=== PATIENT | male | born 1980 | race Caucasian/White ===

== ENCOUNTER 2016-12-22 11:50 | Emergency (ER) | payer SELFPAY ==
[~2016-12-22] VITALS: Ht 188 cm; Wt 110.0 kg
[~2016-12-22 11:50] MED LIST: GUAISYP7 PO; LORA1TAB12 PO; PROT40TA PO; ZITHTAB PO
[2016-12-22 12:02] VITALS: BP 132/80; PULSE 81; RESP 16; TEMP 97.9; O2SAT 91
--- NOTE | 2016-12-22 12:14 | PD ---
HPI Chief Complaint: Pain: Acute or Chronic Time Seen by Provider: 12:45 Travel History International Travel<30 days: No Contact w/Intl Traveler<30days: No Traveled to known affect area: No History of Present Illness HPI 36 YO male with PMH of anxiety, GERD, AFib s/p ablation presents to the ED for evaluation of 3 day history of neck pain. Rated 7/10. Worsened by movement. Patient can recall no acute injury. Also complains of ~3 month history of intermittent dizziness. Sometimes occurs after rising from a sitting position. Endorses chronic, intermittent right frontal headaches- no exacerbation with recent symptoms. Endorses chronic left sided chest wall pain and palpitations 2/ 2 anxiety. Endorses mild SOB over the last few days. Denies abdominal pain. Endorses decreased appetite, mild intermittent nausea and a few episodes of postprandial vomiting recently. Endorses well formed BM q 1-2 days. Denies hematochezia, melena, BRBPR. Endorses chronic low back pain with radiation into the right leg. No acute exacerbations with recent symptoms. Also complains of right foot pain. States that the pain arises in the bottom of the foot and shoots "through the right side" of the body. Denies fevers, chills, vision changes, numbness, tingling, weakness, giving way of the extremities. Followed by Dr. Luna. [facility] Past Medical History Hx Anticoagulant Therapy: No Atrial Fibrillation: Yes Blood Disorders: No Anxiety: Yes Cancer: No Cardiovascular Problems: Yes (ABLATION FOR AFIB) Diminished Hearing: No Endocrine: No Gastrointestinal Disorders: Yes (GERD) GERD: Yes Genitourinary: No Headaches: Yes Immune Disorder: No Implanted Vascular Access Dvce: No Musculoskeletal: No Neurologic: No Reproductive: No Respiratory: No Immunizations Current: No Past Surgical History Other Surgery: No Social History Alcohol Use: No Tobacco Use: No (QUIT 3 YEARs AGO ) Substance Use: No Allergies-Medications (Allergen,Severity, Reaction): Coded Allergies: No Known Allergies (Unverified , 12/22/16) Reported Meds & Prescriptions Reported Meds & Active Scripts Active Zofran Odt (Ondansetron Odt) 4 Mg Tab 4 Mg SL Q12HR PRN Ibuprofen 800 Mg Tab 800 Mg PO Q8H Augmentin (Amoxicillin-Clavulanate) 875-125 Mg Tab 1 Tab PO BID 7 Days Reported Lorazepam 1 Mg Tab 1 Mg PO DAILY Protonix (Pantoprazole Sodium) 40 Mg Tab 40 Mg PO DAILY Review of Systems Except as stated in HPI: all other systems reviewed are Neg Physical Exam Narrative GENERAL: Well-nourished, well-developed white male in no acute distress. SKIN: Warm and dry. Patient has several, scattered, small lipomas. HEAD: Normocephalic. Atraumatic. No tenderness to palpation of the facial sinuses EYES: No scleral icterus. No injection or drainage. PERRLA. EOMI. ENT: Pearly toro tympanic membrane is bilaterally. Nasal mucosa is moist. Oropharynx without erythema, edema or exudate. NECK: Supple, trachea midline. No JVD or lymphadenopathy. No midline tenderness to palpation. ++ TPP of the paraspinal musculature. Patient retains full, active, painless range of motion of the neck. Brudzinski's negative. CARDIOVASCULAR: Regular rate and rhythm without murmurs, gallops, or rubs. 2+ DP and radial pulses bilaterally. RESPIRATORY: Breath sounds clear and equal bilaterally. No accessory muscle use. GASTROINTESTINAL: Abdomen soft, non-tender, nondistended. + Bowel sounds. MUSCULOSKELETAL: No cyanosis, or edema. ++ TPP midline of the proximal 1/3 of the right plantar surface. No tenderness to palpation or limitations to range of motion of the joints of the upper and lower extremities bilaterally. NEUROLOGICAL: Awake and alert. Cranial nerves II through XII intact. Motor and sensory grossly within normal limits. 5/5 muscle strength in all muscle groups. Normal speech. No pronator drift. No ataxia. BACK: No obvious deformity. No CVA tenderness. No midline tenderness. ++TTP paraspinal musculature of the lumbar area. Data Data Last Documented VS Vital Signs Date Time Temp Pulse Resp B/P Pulse Ox O2 Delivery O2 Flow Rate FiO2 12/22/16 15:17 67 16 121/79 98 Room Air 12/22/16 12:02 97.9 Orders Complete Blood Count With Diff (12/22/16 12:44) Comprehensive Metabolic Panel (12/22/16 12:44) Urinalysis - C+S If Indicated (12/22/16 12:44) Iv Access Insert/Monitor (12/22/16 12:44) Sodium Chlor 0.9% 1000 Ml Inj (Ns 1000 M (12/22/16 12:44) Sodium Chloride 0.9% Flush (Ns Flush) (12/22/16 12:45) Ketorolac Inj (Toradol Inj) (12/22/16 12:45) Foot, Limited (2vws) (12/22/16 12:44) Ct Brain W/O Iv Contrast(Rout) (12/22/16 12:44) Baclofen (Lioresal) (12/22/16 12:45) Orthostatic Vital Signs (12/22/16 13:25) Electrocardiogram (12/22/16 13:45) Ckmb (Isoenzyme) Profile (12/22/16 13:45) Troponin I (12/22/16 13:45) Us Abdomen Gallbladder (12/22/16 13:45) CKMB (12/22/16 13:00) CKMB% (12/22/16 13:00) Labs Laboratory Tests Test 12/22/16 12/22/16 13:00 13:04 White Blood Count 12.9 TH/MM3 Red Blood Count 5.14 MIL/MM3 Hemoglobin 15.6 GM/DL Hematocrit 44.1 % Mean Corpuscular Volume 85.8 FL Mean Corpuscular Hemoglobin 30.3 PG Mean Corpuscular Hemoglobin 35.3 % Concent Red Cell Distribution Width 12.8 % Platelet Count 200 TH/MM3 Mean Platelet Volume 9.5 FL Neutrophils (%) (Auto) 65.0 % Lymphocytes (%) (Auto) 25.9 % Monocytes (%) (Auto) 7.5 % Eosinophils (%) (Auto) 1.0 % Basophils (%) (Auto) 0.6 % Neutrophils # (Auto) 8.4 TH/MM3 Lymphocytes # (Auto) 3.3 TH/MM3 Monocytes # (Auto) 1.0 TH/MM3 Eosinophils # (Auto) 0.1 TH/MM3 Basophils # (Auto) 0.1 TH/MM3 CBC Comment DIFF FINAL Differential Comment Sodium Level 139 MEQ/L Potassium Level 4.0 MEQ/L Chloride Level 104 MEQ/L Carbon Dioxide Level 25.6 MEQ/L Anion Gap 9 MEQ/L Blood Urea Nitrogen 14 MG/DL Creatinine 0.92 MG/DL Estimat Glomerular Filtration 92 ML/MIN Rate Random Glucose 88 MG/DL Calcium Level 8.9 MG/DL Total Bilirubin 1.5 MG/DL Aspartate Amino Transf 52 U/L (AST/SGOT) Alanine Aminotransferase 114 U/L (ALT/SGPT) Alkaline Phosphatase 67 U/L Total Creatine Kinase 123 U/L Creatine Kinase MB 0.7 NG/ML Troponin I LESS THAN 0.02 NG/ML Total Protein 7.4 GM/DL Albumin 4.2 GM/DL Urine Color YELLOW Urine Turbidity CLEAR Urine pH 5.5 Urine Specific [place] 1.024 Urine Protein TRACE mg/dL Urine Glucose (UA) NEG mg/dL Urine Ketones NEG mg/dL Urine Occult Blood NEG Urine Nitrite NEG Urine Bilirubin NEG Urine Urobilinogen LESS THAN 2.0 MG/DL Urine Leukocyte Esterase NEG Urine RBC LESS THAN 1 /hpf Urine WBC LESS THAN 1 /hpf Urine Mucus FEW /lpf Microscopic Urinalysis Comment CULT NOT INDICATED MDM Medical Decision Making Medical Screen Exam Complete: Yes Emergency Medical Condition: Yes Differential Diagnosis musculoskeletal pain versus anxiety versus heel spur versus orthostatic hypotension versus less likely ICH versus less likely ACS versus other Narrative Course 36-year-old male with PMH of anxiety, GERD, A. fib S/PE abrasion presents to the ED with multiple complaints including neck pain 3 days, low appetite and nausea, nonspecific shortness of breath, right-sided foot pain. Patient is afebrile, heart rate 64, BP 137/88, respiratory rate 16, 98% on room air on presentation. Physical exam reveals a nontoxic-appearing white male in no acute distress. No focal neuro deficits noted. ++TTP of the paraspinal musculature in the cervical and lumbar spinal area. No meningeal signs. ++TTP plantar aspect of the calcaneus on the right foot. Patient was administered 1 L normal saline, 30 mg Toradol IV and 10 mg baclofen PO. CBC: WBC 12.9. Hgb 15.6 CMP: Bilirubin 1.5. AST 52, ALT 114 UA: No culture indicated. EKG: Rate 58, sinus rhythm. AR interval 147, QRS 97, QTC 403 ms. Normal axis. No ST elevations or depressions. Reviewed by Dr. Cottrell. Cardiac enzymes: negative x 1 Orthostatic vital signs: Negative CT head: No intracranial abnormality. Mild asthma. Sinus disease. XR right foot: No acute abnormality, mild osteoarthritis, heel spur and small distal Achilles enthesophyte. RUQ US: Normal gallbladder. No evidence of biliary obstruction. I discussed the results of the work up with the patient at length. The majority symptoms seem chronic and the patient has been extensively worked up. He states that he "spent a few weeks" at the [facility] being evaluated in the past. Ultimately, I recommended treating the chronic sinusitis and musculoskeletal pain with close follow-up by the primary care provider for the elevated LFTs. Patient is agreeable to this care plan. He is prescribed 875 Augmentin twice a day, 800 mg ibuprofen 3 times a day and provided with a few doses of Zofran. After take the medication as prescribed, follow up with the half backer regarding his foot pain, primary care for elevated LFTs. He indicated understanding of instructions and is agreeable to the care plan. The patient is stable and discharged home. Diagnosis Primary Impression: Cervical muscle strain Qualified Code: S16.1XXA - Cervical muscle strain, initial encounter Additional Impressions: Heel spur Qualified Code: M77.31 - Heel spur, right Elevated LFTs Sinusitis Qualified Code: J01.20 - Subacute ethmoidal sinusitis Referrals: Ear / Nose / Throat Specialist Transmission Builder Primary Care Physician Psychiatrist Patient Instructions: General Instructions, Heel Spur (ED), Musculoskeletal Pain (ED), Sinusitis (ED) Additional Instructions: Rest, hydrate. Return to normal, gentle activity as tolerated. Take all antibiotics as prescribed, even if symptoms resolve. 800 mg ibuprofen 3 times daily for the next 5 days. Flexeril up to 3 times a day as needed for muscle spasm. Do not drive while taking Flexeril. Follow-up with the half backer regarding your heel spur. Follow-up with the primary care provider for evaluation of elevated LFTs today. Return to the ED for any urgent or emergent medical condition. Med/Other Pt SpecificInfo: Prescription(s) given Scripts Ondansetron Odt (Zofran Odt)4 Mg Tab4 Mg SL Q12HR PRN (Nausea/Vomiting) #6 TAB Ref 0 Prov:Dano Cottrell MD 12/22/16 Ibuprofen 800 Mg [id number] Mg PO Q8H #15 TAB Ref 0 Prov:Dano Cottrell MD 12/22/16 Amoxicillin-Clavulanate (Augmentin)875-125 Mg Tab1 Tab PO BID 7 Days Ref 0 Prov:Dano Cottrell MD 12/22/16 Disposition: 01 DISCHARGE HOME Condition: Stable Thais Blackwell Dec 22, 2016 12:13
[2016-12-22 12:16] VITALS: BP 138/72; PULSE 82; RESP 16; O2SAT 97
[2016-12-22] MEDS ORDERED: SODIUM CHLOR 0.9% 1000 ML INJ 1,000 ML IV SCH (12:44)
[2016-12-22] MEDS ORDERED: KETOROLAC TROMETHAMINE 30 MG/ML (IVP) VIAL IV PUSH ONE (12:45)
[2016-12-22] MEDS ORDERED: BACLOFEN 10 MG TAB PO ONE (12:45)
[2016-12-22] MEDS ORDERED: SODIUM CHLORIDE 0.9% FLUSH 10 ML FLUSH IV FLUSH PRN (12:45)
[2016-12-22] MEDS ORDERED: LORA1TAB12 PO (12:46)
--- NOTE | 2016-12-22 13:16 | RADRPT ---
EXAM DATE/TIME: 12/22/2016 13:03 [facility] COMPARISON: No previous studies available for comparison. INDICATIONS : Right foot pain. MEDICAL HISTORY : None. SURGICAL HISTORY : None. ENCOUNTER: Initial ACUITY: 1 day PAIN SCORE: 4/10 LOCATION: Right foot. FINDINGS: Bones of the right foot are intact. Mild talonavicular and navicular/cuneiform osteoarthritis noted. There is also mild osseous ridging along the medial margin of the great toe interphalangeal joint. Tiny heel spur. Also small enthesophyte of the distal Achilles. Radiographic appearance of the soft tissues within normal limits. No radiopaque foreign body seen. CONCLUSION: No acute abnormality demonstrated. Mild degenerative changes, tiny heel spur and a small distal Achil les enthesophyte noted. Diallo Rodriguez MD on December 22, 2016 at 13:12 Board Certified Radiologist. This report was verified electronically.
[2016-12-22 13:17] LABS: AUTOMATED NEUTROPHIL # 8.4 TH/MM3 (1.8-7.7); BASOPHIL # 0.1 TH/MM3 (0-0.2); BASOPHIL % 0.6 % (0.0-2.0); EOSINOPHIL # 0.1 TH/MM3 (0-0.4); HEMATOCRIT 44.1 % (39.0-51.0); HEMO FLAGS DIFF FINAL; LYMPH % 25.9 % (9.0-44.0); LYMPHOCYTE # 3.3 TH/MM3 (1.0-4.8); MEAN CELL VOLUME 85.8 FL (80.0-100.0); MEAN CORPUSCULAR HEMOGLOBIN 30.3 PG (27.0-34.0); MEAN CORPUSCULAR HGB CONC 35.3 % (32.0-36.0); MONO % 7.5 % (0.0-8.0); PLATELET COUNT 200 TH/MM3 (150-450); RED BLOOD COUNT 5.14 MIL/MM3 (4.50-5.90); RED CELL DISTRIBUTION WIDTH 12.8 % (11.6-17.2); WHITE BLOOD COUNT 12.9 TH/MM3 (4.0-11.0)
[2016-12-22 13:19] LABS: BLOOD, URINE NEG (NEG); COMMENT (UR) CULT NOT INDICATED; CULTURE IF INDICATED CULT NOT INDICATED; GLUCOSE,URINE NEG (NEG); KETONE, URINE NEG (NEG); MUCUS URINE FEW /lpf (OCC); NITRITE,URINE NEG (NEG); PH, URINE 5.5 (5.0-8.5); URINE COLOR YELLOW (YELLW/STRAW)
[2016-12-22 13:36] LABS: ANION GAP 9 MEQ/L (5-15); AST (GOT) 52 U/L (15-37); BICARBONATE 25.6 MEQ/L (21.0-32.0); BLOOD UREA NITROGEN 14 MG/DL (7-18); CHLORIDE 104 MEQ/L (98-107); GLOMERULAR FILTRATION RATE 92 ML/MIN (>89); SODIUM (NA) 139 MEQ/L (136-145)
[2016-12-22 13:40] LABS: ALKALINE PHOSPHATASE 67 U/L (45-117); ALT (GPT) 114 U/L (12-78); TOTAL BILIRUBIN ADULT 1.5 MG/DL (0.2-1.0)
--- NOTE | 2016-12-22 13:57 | RADRPT ---
EXAM DATE/TIME: 12/22/2016 13:47 [facility] COMPARISON: No previous studies available for comparison. INDICATIONS : General numbness and right sided cephalgia today. RADIATION DOSE: 56.35 CTDIvol (mGy) MEDICAL HISTORY : Cardiovascular disease. SURGICAL HISTORY : None. ENCOUNTER: Initial ACUITY: 1 day PAIN SCALE: 5/10 LOCATION: Right temporal head TECHNIQUE: Multiple contiguous axial images were obtained of the head. Using automated exposure control and adj ustment of the mA and/or kV according to patient size, radiation dose was kept as low as reasonably a chievable to obtain optimal diagnostic quality images. FINDINGS: CEREBRUM: The ventricles are normal for age. No evidence of midline shift, mass lesion, hemorrhage or acute in farction. No extra-axial fluid collections are seen. POSTERIOR FOSSA: The cerebellum and brainstem are intact. The 4th ventricle is midline. The cerebellopontine angle i s unremarkable. EXTRACRANIAL: Mild mucoperiosteal thickening seen of the ethmoid air cells. SKULL: The calvaria is intact. No evidence of skull fracture. CONCLUSION: No intracranial abnormality. Mild ethmoid sinus disease. Diallo Rodriguez MD on December 22, 2016 at 13:53 Board Certified Radiologist. This report was verified electronically.
[2016-12-22 14:17] VITALS: BP_SYST 133; BP_SYST 140; BP_SYST 142; BP_DIAS 80; BP_DIAS 89; BP_DIAS 91; RESP 16
[2016-12-22 14:37] LABS: CREATINE KINASE 123 U/L (39-308)
[2016-12-22 14:49] LABS: CKMB 0.7 NG/ML (0.5-3.6)
--- NOTE | 2016-12-22 15:09 | RADRPT ---
EXAM DATE/TIME: 12/22/2016 14:31 [facility] COMPARISON: US ABDOMEN - GALLBLADDER, June 13, 2015, 14:18. INDICATIONS : Nausea/vomting. MEDICAL HISTORY : Afib. Headache. GERD. Anxiety. SURGICAL HISTORY : Cardiac ablation. Orthopedic surgery, left foot. ENCOUNTER: Initial ACUITY: 1 day PAIN SCORE: 4/10 LOCATION: Right upper quadrant MEASUREMENTS: LIVER: 19.0 cm length COMMON DUCT: 2 mm RIGHT KIDNEY: 11.8 x 5.9 x 5.5 cm FINDINGS: LIVER: Diffuse fatty infiltration again seen of the liver. There are areas of fatty sparing again noted, one in the right lobe measuring 14 mm and the other adjacent to the gallbladder fossa measuring 11 mm. T hese are unchanged. No new or concerning focal hepatic lesion. There is no biliary distention. There is normal flow velocity and direction in the main portal vein. COMMON DUCT: No intraluminal mass or stone visualized. GALLBLADDER: Contains no stones, demonstrates no wall thickening or pericholecystic fluid. PANCREAS: The visualized portions are within normal limits. RIGHT KIDNEY: No evidence of hydronephrosis, stone, or mass. CONCLUSION: Fatty liver with localized areas of sparing and mild hepatomegaly again noted. No evidence of biliary obstruction. Normal gallbladder. Diallo Rodriguez MD on December 22, 2016 at 15:05 Board Certified Radiologist. This report was verified electronically.
[2016-12-22 15:17] VITALS: BP 121/79; PULSE 67; RESP 16; O2SAT 98
[2016-12-22] MEDS ORDERED: IBUP800T23 PO (15:42)
[2016-12-22] MEDS ORDERED: AUGM875T3 PO (15:42)
[2016-12-22] MEDS ORDERED: ZOFR4TAB3 SL (15:43)
--- NOTE | 2016-12-23 11:42 | EKG ---
Date Performed: 12/22/2016 Time Performed: 14:13:37 PTAGE: 36 years EKG: SINUS BRADYCARDIA Since previous tracing, no significant change noted BORDERLINE ECG PREVIOUS TRACING : 10/27/2015 15.00 DOCTOR: Eric Means Interpretating Date/Time 12/23/2016 11:40:06
== END 2016-12-22 16:20 | disposition home or self-care (01) ==
LOC: NEPE 11:50
DX: S16.1XXA Strain of muscle, fascia and tendon at neck level, initial encounter (principal); M77.31 Calcaneal spur, right foot; R79.89 Other specified abnormal findings of blood chemistry; J01.20 Acute ethmoidal sinusitis, unspecified; R07.89 Other chest pain; R06.02 Shortness of breath; R11.2 Nausea with vomiting, unspecified; M54.5 Low back pain; R94.31 Abnormal electrocardiogram [ECG] [EKG]; X58.XXXA Exposure to other specified factors, initial encounter; Z86.79 Personal history of other diseases of the circulatory system; Z86.59 Personal history of other mental and behavioral disorders; Z87.19 Personal history of other diseases of the digestive system; Z87.891 Personal history of nicotine dependence
CPT/HCPCS: 70450; 73620; 76705; 80053; 81001; 82550; 82552; 84484; 85025; 93005; 96361; 96374; 99285; J1885; J7030